=== PATIENT | male | born 1970 | race African-American/Black ===

== ENCOUNTER 2017-04-17 09:35 | Emergency (ER) | payer OTHER ==
[~2017-04-17] VITALS: Ht 180.3 cm; Wt 70.0 kg
[~2017-04-17 09:35] MED LIST: CLAR10TA7 PO; LEVE500 PO; WALKER WHEELS/F1 MIS; WHEEMIS3 XX
[2017-04-17 09:49] VITALS: BP 138/86; PULSE 69; RESP 20
[2017-04-17] MEDS ORDERED: SODIUM CHLORIDE 0.9% FLUSH 10 ML FLUSH IVF PRN (10:15)
[2017-04-17 10:23] LABS: AUTOMATED NEUTROPHIL # 4.2 TH/MM3 (1.8-7.7); BASOPHIL % 0.4 % (0.0-2.0); EOSINOPHIL % 0.2 % (0.0-4.0); HEMO FLAGS DIFF FINAL; LYMPH % 22.5 % (9.0-44.0); LYMPHOCYTE # 1.4 TH/MM3 (1.0-4.8); MEAN CELL VOLUME 85.6 FL (80.0-100.0); MEAN CORPUSCULAR HEMOGLOBIN 28.4 PG (27.0-34.0); MEAN CORPUSCULAR HGB CONC 33.2 % (32.0-36.0); MONO % 8.1 % (0.0-8.0); NEUT % 68.8 % (16.0-70.0); PLATELET COUNT 160 TH/MM3 (150-450); RED BLOOD COUNT 4.79 MIL/MM3 (4.50-5.90); RED CELL DISTRIBUTION WIDTH 14.3 % (11.6-17.2)
[2017-04-17 10:43] VITALS: O2SAT 99
--- NOTE | 2017-04-17 10:45 | RADRPT ---
EXAM DATE/TIME: 04/17/2017 10:34 [place] COMPARISON: CT BRAIN W/O CONTRAST, August 21, 2016, 14:46. INDICATIONS : Syncope, dizziness, and headache RADIATION DOSE: 28.68 CTDIvol (mGy) MEDICAL HISTORY : Chronic obstructive pulmonary disease. Seizures. SURGICAL HISTORY : None. ENCOUNTER: Initial ACUITY: 1 day PAIN SCALE: 3/10 LOCATION: cranial TECHNIQUE: Multiple contiguous axial images were obtained of the head. Using automated exposure control and adj ustment of the mA and/or kV according to patient size, radiation dose was kept as low as reasonably a chievable to obtain optimal diagnostic quality images. DICOM format image data is available electro nically for review and comparison. FINDINGS: CEREBRUM: The ventricles are normal for age. No evidence of midline shift, mass lesion, hemorrhage or acute in farction. No extra-axial fluid collections are seen. POSTERIOR FOSSA: The cerebellum and brainstem are intact. The 4th ventricle is midline. The cerebellopontine angle i s unremarkable. EXTRACRANIAL: The visualized portion of the orbits is intact. SKULL: The calvaria is intact. No evidence of skull fracture. CONCLUSION: Negative exam. Epifanio Cohen MD on April 17, 2017 at 10:41 Board Certified Radiologist. This report was verified electronically.
--- NOTE | 2017-04-17 10:46 | PD ---
HPI . Altered level of consciousness Chief Complaint: Neuro Symptoms/ Deficits Time Seen by Provider: 09:59 Travel History International Travel<30 days: No Contact w/Intl Traveler<30days: No Traveled to known affect area: No History of Present Illness HPI History is obtained from this patient's significant other. She reports altered level of consciousness which started last night. She states that he was "in and out." This has been associated with some left-sided weakness. She states that his symptoms will start with watering from his eyes, nose and mouth. He will then be unresponsive for a period of time. He does not have any movement associated with the episodes of unresponsiveness with the exception of fluttering of his eyelids. The patient's significant other states that he has had several previous similar episodes. She states that he has been admitted to the hospital a couple of occasions because of this. He is on Keppra and she reports compliance with Keppra. She is unaware of any exacerbating or relieving factors. PFSH Past Medical History Asthma: No Blood Disorders: No Anxiety: No Depression: No Heart Rhythm Problems: No Cancer: No Cardiovascular Problems: No High Cholesterol: No Chemotherapy: Yes (UNABLE TO CONFIRM WITH PT) Chest Pain: No Congestive Heart Failure: No COPD: Yes Diabetes: No Endocrine: No Gastrointestinal Disorders: No Genitourinary: No Hypertension: No Immune Disorder: No Implanted Vascular Access Dvce: No Musculoskeletal: No Neurologic: No Psychiatric: No Reproductive: No Respiratory: No Radiation Therapy: No Seizures: Yes Sleep Apnea: No Thyroid Disease: No Past Surgical History Other Surgery: No Social History Alcohol Use: Yes ([facility]) Tobacco Use: No Substance Use: No Allergies-Medications (Allergen,Severity, Reaction): Coded Allergies: No Known Allergies (Verified , 08/21/16) Reported Meds & Prescriptions Reported Meds & Active Scripts Active Keppra (Levetiracetam) 500 Mg Tab 1,000 Mg PO Q12HR 30 Days Review of Systems Except as stated in HPI: all other systems reviewed are Neg General / Constitutional: No: Fever, Chills HENT: Positive: Headaches Cardiovascular: No: Chest Pain or Discomfort Respiratory: No: Shortness of Breath Gastrointestinal: No: Nausea, Vomiting Neurologic: Positive: Weakness, Syncope, Focal Abnormalities, Headache, Change in Mentation Physical Exam Narrative GENERAL: The patient is lying on the stretcher with his eyes closed. He has rhinorrhea and tearing. He will awaken and answer questions but prefers to be lying with his eyes closed. SKIN: Warm and dry. HEAD: Atraumatic. Normocephalic. EYES: Pupils equal and round. Extraocular movements are intact. ENT: No nasal bleeding or discharge. Mucous membranes pink and moist. NECK: Trachea midline. Neck is supple. CARDIOVASCULAR: Regular rate and rhythm. Heart sounds are normal. RESPIRATORY: No accessory muscle use. Lungs sound clear with good air movement throughout. GASTROINTESTINAL: Abdomen soft, non-tender, nondistended. MUSCULOSKELETAL: No obvious deformities. No edema. NEUROLOGICAL: Sleepy but easily arousable. No obvious cranial nerve deficits. He has no sensation or movement on the left side. PSYCHIATRIC: Appropriate mood and affect; insight and judgment normal. Data Data Last Documented VS Vital Signs Date Time Temp Pulse Resp B/P (MAP) Pulse Ox O2 Delivery O2 Flow Rate FiO2 04/17/17 10:43 99 04/17/17 09:49 69 20 Orders Orders Complete Blood Count With Diff (04/17/17 10:10) Basic Metabolic Panel (Bmp) (04/17/17 10:10) Ct Brain W/O Iv Contrast(Rout) (04/17/17 ) Ecg Monitoring (04/17/17 10:10) Iv Access Insert/Monitor (04/17/17 10:10) Oximetry (04/17/17 10:10) Sodium Chloride 0.9% Flush (Ns Flush) (04/17/17 10:15) Prochlorperazine Inj (Compazine Inj) (04/17/17 11:00) Diphenhydramine Inj (Benadryl Inj) (04/17/17 11:00) Labs Laboratory Tests Test 04/17/17 10:15 White Blood Count 6.0 TH/MM3 Red Blood Count 4.79 MIL/MM3 Hemoglobin 13.6 GM/DL Hematocrit 41.0 % Mean Corpuscular Volume 85.6 FL Mean Corpuscular Hemoglobin 28.4 PG Mean Corpuscular Hemoglobin Concent 33.2 % Red Cell Distribution Width 14.3 % Platelet Count 160 TH/MM3 Mean Platelet Volume 8.3 FL Neutrophils (%) (Auto) 68.8 % Lymphocytes (%) (Auto) 22.5 % Monocytes (%) (Auto) 8.1 % Eosinophils (%) (Auto) 0.2 % Basophils (%) (Auto) 0.4 % Neutrophils # (Auto) 4.2 TH/MM3 Lymphocytes # (Auto) 1.4 TH/MM3 Monocytes # (Auto) 0.5 TH/MM3 Eosinophils # (Auto) 0.0 TH/MM3 Basophils # (Auto) 0.0 TH/MM3 CBC Comment DIFF FINAL Differential Comment Blood Urea Nitrogen 11 MG/DL Creatinine 0.93 MG/DL Random Glucose 95 MG/DL Calcium Level 9.2 MG/DL Sodium Level 139 MEQ/L Potassium Level 3.9 MEQ/L Chloride Level 106 MEQ/L Carbon Dioxide Level 24.6 MEQ/L Anion Gap 8 MEQ/L Estimat Glomerular Filtration Rate 107 ML/MIN MDM Medical Decision Making Medical Screen Exam Complete: Yes Emergency Medical Condition: Yes Medical Record Reviewed: Yes (this patient was admitted in September 2015 and then again in July 2016. He has had a negative MRI of his brain, negative EEG, negative carotid ultrasound. 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 He has been treated with Keppra.) Differential Diagnosis Differential diagnosis of seizure includes but is not limited to epilepsy, electrolyte abnormality, previous stroke, closed head injury Narrative Course This patient presents following syncope and possible seizure. He has had this a couple times in the past. The etiology of his symptoms are as yet undetermined. CBC & BMP Diagram 04/17/17 10:15 Calcium Level 9.[address] 04/17/17 0000 Signed Impressions: Service Date/Time: Monday, April 17, 2017 10:34 - CONCLUSION: Negative exam. Epifanio Cohen MD This patient cannot go home as he is paralyzed on the left side. He is currently being treated with oxygen and Compazine/Benadryl for the possibility of cluster headaches. This patient's symptoms did improve slightly with the oxygen and Compazine/ Benadryl. Physician Communication Physician Communication Dr. Agee Diagnosis Primary Impression: Syncope and collapse Additional Impressions: Left-sided weakness Headache Qualified Codes: R51 - Headache Admitting Information Admitting Physician Requests: Admit Condition: Stable Dianne St MD Apr 17, 2017 10:46
[2017-04-17 10:50] LABS: BICARBONATE 24.6 MEQ/L (21.0-32.0); POTASSIUM 3.9 MEQ/L (3.5-5.1)
[2017-04-17] MEDS ORDERED: PROCHLORPERAZINE INJ 10 MG/2 ML VIAL IV PUSH ONE (11:00)
[2017-04-17] MEDS ORDERED: diphenhydrAMINE HCL 50 MG/ML VIAL IV PUSH ONE (11:00)
[2017-04-17 12:49] VITALS: BP 110/72; PULSE 60; RESP 20
[2017-04-17] MEDS ORDERED: CYCL5TAB PO (15:35)
--- NOTE | 2017-04-17 15:43 | HHI.HP ---
HPI Service [facility]ists Primary Care Physician Aiyana Felix MD Admission Diagnosis altered mental status, L sided weakness Travel History International Travel<30 Days: No Contact w/Intl Traveler <30 Da: No Traveled to Known Affected Are: No Past Family Social History Allergies: Coded Allergies: No Known Allergies (Verified , 08/21/16) Physical Exam Vital Signs Vital Signs Date Time Temp Pulse Resp B/P (MAP) Pulse Ox O2 Delivery O2 Flow Rate FiO2 04/17/17 12:49 60 20 110/72 (85) 04/17/17 10:43 99 04/17/17 09:49 69 20 138/86 (103) Physical Exam GENERAL: This is a well-nourished, well-developed patient, in no apparent distress. SKIN: No rashes, ecchymoses or lesions. Cool and dry. HEAD: Atraumatic. Normocephalic. No temporal or scalp tenderness. EYES: Pupils equal round and reactive. Extraocular motions intact. No scleral icterus. No injection or drainage. ENT: Nose without bleeding, purulent drainage or septal hematoma. Throat without erythema, tonsillar hypertrophy or exudate. Uvula midline. Airway patent. NECK: Trachea midline. No JVD or lymphadenopathy. Supple, nontender, no meningeal signs. CARDIOVASCULAR: Regular rate and rhythm without murmurs, gallops, or rubs. RESPIRATORY: Clear to auscultation. Breath sounds equal bilaterally. No wheezes , rales, or rhonchi. GASTROINTESTINAL: Abdomen soft, non-tender, nondistended. No hepato-splenomegaly , or palpable masses. No guarding. MUSCULOSKELETAL: Extremities without clubbing, cyanosis, or edema. No joint tenderness, effusion, or edema noted. No calf tenderness. Negative Homans sign bilaterally. NEUROLOGICAL: Awake and alert. Cranial nerves II through XII intact. Motor and sensory grossly within normal limits. Five out of 5 muscle strength in all muscle groups. Normal speech. Laboratory Laboratory Tests Test 04/17/17 10:15 White Blood Count 6.0 Red Blood Count 4.79 Hemoglobin 13.6 Hematocrit 41.0 Mean Corpuscular Volume 85.6 Mean Corpuscular Hemoglobin 28.4 Mean Corpuscular Hemoglobin Concent 33.2 Red Cell Distribution Width 14.3 Platelet Count 160 Mean Platelet Volume 8.3 Neutrophils (%) (Auto) 68.8 Lymphocytes (%) (Auto) 22.5 Monocytes (%) (Auto) 8.1 Eosinophils (%) (Auto) 0.2 Basophils (%) (Auto) 0.4 Neutrophils # (Auto) 4.2 Lymphocytes # (Auto) 1.4 Monocytes # (Auto) 0.5 Eosinophils # (Auto) 0.0 Basophils # (Auto) 0.0 CBC Comment DIFF FINAL Differential Comment Blood Urea Nitrogen 11 Creatinine 0.93 Random Glucose 95 Calcium Level 9.2 Sodium Level 139 Potassium Level 3.9 Chloride Level 106 Carbon Dioxide Level 24.6 Anion Gap 8 Estimat Glomerular Filtration Rate 107 Result Diagram: 04/17/17 1015 04/17/17 1015 Caprini VTE Risk Assessment Caprini Risk Assessment Model Point Value = 1 Point Value = 2 Point Value = 3 Point Value = 5 Age 41-60 Minor surgery BMI > 25 kg/m2 Swollen legs Varicose veins or History of unexplained or recurrent spontaneous Oral contraceptives or hormone replacement Sepsis (< 1 month) Serious lung disease, including pneumonia (< 1 month) Abnormal pulmonary function Acute myocardial infarction Congestive heart failure (< 1 month) History of inflammatory bowel disease Medical patient at bed rest Age 61-74 Arthroscopic surgery Major open surgery (> 45 min) Laparoscopic surgery (> 45 min) Malignancy Confined to bed (> 72 hours) Immobilizing plaster cast Central venous access Age >= 75 History of VTE Family history of VTE Factor V Leiden Prothrombin [id number] Lupus anticoagulant Anticardiolipin antibodies Elevated serum homocysteine Heparin-induced thrombocytopenia Other congenital or acquired thrombophilia Stroke (< 1 month) Elective arthroplasty Hip, pelvis, or leg fracture Acute spinal cord injury (< 1 month) Prophylaxis Regimen Total Risk Factor Score Risk Level Prophylaxis Regimen 0-1 Low Early ambulation 2 Moderate Order ONE of the following: *Sequential Compression Device (SCD) *Heparin 5000 units SQ BID 3-4 Higher Order ONE of the following medications: *Heparin 5000 units SQ TID *Enoxaparin/Lovenox 40 mg SQ daily (WT < 150 kg, CrCl > 30 mL/min) *Enoxaparin/Lovenox 30 mg SQ daily (WT < 150 kg, CrCl > 10-29 mL/min) *Enoxaparin/Lovenox 30 mg SQ BID (WT < 150 kg, CrCl > 30 mL/min) AND/OR *Sequential Compression Device (SCD) 5 or more Highest Order ONE of the following medications: *Heparin 5000 units SQ TID (Preferred with Epidurals) *Enoxaparin/Lovenox 40 mg SQ daily (WT < 150 kg, CrCl > 30 mL/min) *Enoxaparin/Lovenox 30 mg SQ daily (WT < 150 kg, CrCl > 10-29 mL/min) *Enoxaparin/Lovenox 30 mg SQ BID (WT < 150 kg, CrCl > 30 mL/min) AND *Sequential Compression Device (SCD) Aries Agee MD Apr 17, 2017 15:43
== END 2017-04-17 15:54 | disposition home or self-care (01) ==
LOC: NEPC 09:35 → NEDA 11:46 → UNDOADMOB 11:46 → INTOOBSV 11:46
DX: R55 Syncope and collapse (principal); R53.1 Weakness; R51 Headache
CPT/HCPCS: 70450; 80048; 85025; 96374; 96375; 99285; J0780; J1200

== ENCOUNTER 2018-04-08 08:55 | Observation (INO) ==
--- NOTE | 2018-04-08 09:20 | ED ---
HPI General Chief Complaint: Chest Pain Stated Complaint: Chest pain Time Seen by Provider: 04/08/18 09:05 Source: patient Mode of arrival: EMS Limitations: no limitations History of Present Illness HPI narrative: Patient is a 47-year-old male who presents to the emergency room via EMS for evaluation of chest pain. 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 Patient reports that chest pain feels like a sharp and stabbing sensation to his left chest, it is nonradiating in nature. Patient endorses that he does feel short of breath and diaphoretic with the symptoms. Patient reports that nothing makes chest pain better or worse, reports that this is happened once but he saw a physician for this. Patient reports that his only medical history is seizures, he takes Keppra for this. Patient with no history of hypertension or hyperlipidemia or diabetes. Patient reports that he is a tobacco smoker, no family history of early coronary artery disease. Patient also endorses that he does feel lightheaded and dizzy with this chest pain. EMS reports that they found patient on the lawn of someone's house clutching his left chest - their EKG was unremarkable - no meds were given to patient. Complete Quality Measures for STEMI Alert Patients Related Data Home Medications Medication Instructions Recorded Confirmed levetiracetam [Keppra] 500 mg PO Q12H 04/08/18 04/08/18 Allergies Allergy/AdvReac Type Severity Reaction Status Date / Time No Known Allergies Allergy Unverified 04/08/18 09:04 Review of Systems ROS: all other systems reviewed are negative [facility] Medical History Medical History Seizure (Acute) Social History Social History Substance History: No History of Abuse Second Hand Smoke Exposure: No Smoking Status: Light tobacco smoker Tobacco Type: Cigarettes How Often Do You Have a Drink Containing Alcohol: 2 to 3 times a week Recent Travel in [facility] within the Last 8 Weeks: No Recent Out of Country Travel within the Last 8 Weeks: No Immunization History Tetanus Immunization: Unsure Hx Influenza Vaccine This Season: Unable to Assess Exam Narrative Exam Narrative: GENERAL: severe distress SKIN: Focused skin assessment warm/diaphoretic. HEAD: Atraumatic. Normocephalic. EYES: Pupils equal and round. No scleral icterus. No injection or drainage. ENT: No nasal bleeding or discharge. Mucous membranes pink and moist. NECK: Trachea midline. No JVD. CARDIOVASCULAR: Tachycardic. No murmur appreciated. Patient clutching his left chest RESPIRATORY: No accessory muscle use. Clear to auscultation. Breath sounds equal bilaterally. GASTROINTESTINAL: Abdomen soft, non-tender, nondistended. Hepatic and splenic margins not palpable. MUSCULOSKELETAL: No obvious deformities. No clubbing. No cyanosis. No edema. NEUROLOGICAL: Awake and alert. No obvious cranial nerve deficits. Motor grossly within normal limits. Normal speech. PSYCHIATRIC: Anxious mood and affect; insight and judgment normal. Course Initial Documented Vital Signs Pulse Oximetry 98 04/08/18 09:00 Last Documented Vital Signs Pulse Rate 64 04/08/18 10:00 Respiratory Rate 16 04/08/18 09:49 Blood Pressure 97/57 L 04/08/18 10:00 Pulse Oximetry 98 04/08/18 09:49 Medical Decision Making MDM Narrative Medical decision making narrative: During the course of the patients emergency department visit, the patients history, examination, and differential diagnosis were reviewed with the patient. The patient was placed on a deck cadet with oximetry and frequent blood pressure monitoring. The patient had an IV access obtained and blood work sent for analysis. The patient was initially provided aspirin 162mg as well as SL nitro for chest pain Patient lab work was reviewed, for set of troponin was negative. Patient's d- dimer 0.92. Patient had relief of chest pain after 1 sublingual nitroglycerin. Given his positive d-dimer, a CTA was ordered to rule out PE. Patient is agreeable for this CAT scan. CTA neg for pe- patient resting comfortably at this time - patient will be obs in the chest pain unit Differential Diagnosis Differential Diagnosis: ACS, arrhythmia, electrolyte abnormality, anxiety reaction, pneumothorax, PE Medical Records Medical records reviewed: Yes I reviewed the patient's medical records. Lab Data Lab results reviewed: Yes I reviewed the patient's lab results. Result diagrams: 04/08/18 09:10 04/08/18 09:10 Lab Results 04/08/18 04/08/18 04/08/18 Range/Units 09:10 09:10 09:10 WBC 5.1 (4.0-11.0) th/mm3 RBC 4.57 (4.50-5.90) mil/mm3 Hgb 12.9 L (13.0-17.0) gm/dL Hct 38.3 L (39.0-51.0) % MCV 83.8 (80.0-100.0) fL MCH 28.3 (27.0-34.0) pg MCHC 33.8 (32.0-36.0) % RDW 14.1 (11.6-17.2) % Plt Count 177 (150-450) th/mm3 MPV 8.1 (7.0-11.0) fL Neut % (Auto) 69.6 (16.0-70.0) % Lymph % (Auto) 21.5 (9.0-44.0) % Parmer % (Auto) 8.1 H (0.0-8.0) % Eos % (Auto) 0.2 (0.0-4.0) % Baso % (Auto) 0.6 (0.0-2.0) % Neut # (Auto) 3.5 (1.8-7.7) th/mm3 Lymph # (Auto) 1.1 (1.0-4.8) th/mm3 Parmer # (Auto) 0.4 (0.0-0.9) th/mm3 Eos # (Auto) 0.0 (0.0-0.4) th/mm3 Baso # (Auto) 0.0 (0.0-0.2) th/mm3 WBC Differential . Differential Comment Auto diff final PT 11.0 (9.8-11.6) sec INR 1.1 Ratio APTT 22.9 L (24.3-30.1) sec D-Dimer Quant (PE/DVT) 0.92 H (0.00-0.50) mg/L FEU Sodium 138 (136-145) meq/L Potassium 3.9 (3.5-5.1) meq/L Chloride 106 (98-107) meq/L Carbon Dioxide 21.6 (21.0-32.0) meq/L Anion Gap 10 (5-15) meq/L BUN 15 (7-18) mg/dL Creatinine 1.02 (0.60-1.30) mg/dL Estimated GFR Greater than 89 (>89) mL/min Random Glucose 90 (74-106) mg/dL Calcium 8.8 (8.5-10.1) mg/dL Magnesium 1.9 (1.5-2.5) mg/dL Total Bilirubin 0.9 (0.2-1.0) mg/dL AST 31 (15-37) U/L ALT 41 (12-78) U/L Alkaline Phosphatase 63 (45-117) U/L Total Creatine Kinase 406 H (39-308) U/L CK-MB (CK-2) 1.2 (0.5-3.6) ng/mL CK-MB (CK-2) % 0.3 (0.0-4.0) % Troponin I Less than 0.02 L (0.02-0.05) ng/mL B-Natriuretic Peptide (0-100) pg/mL Total Protein 7.2 (6.4-8.2) g/dL Albumin 4.0 (3.4-5.0) g/dL Lipase 255 (73-393) U/L 04/08/18 Range/Units 09:10 WBC (4.0-11.0) th/mm3 RBC (4.50-5.90) mil/mm3 Hgb (13.0-17.0) gm/dL Hct (39.0-51.0) % MCV (80.0-100.0) fL MCH (27.0-34.0) pg MCHC (32.0-36.0) % RDW (11.6-17.2) % Plt Count (150-450) th/mm3 MPV (7.0-11.0) fL Neut % (Auto) (16.0-70.0) % Lymph % (Auto) (9.0-44.0) % Parmer % (Auto) (0.0-8.0) % Eos % (Auto) (0.0-4.0) % Baso % (Auto) (0.0-2.0) % Neut # (Auto) (1.8-7.7) th/mm3 Lymph # (Auto) (1.0-4.8) th/mm3 Parmer # (Auto) (0.0-0.9) th/mm3 Eos # (Auto) (0.0-0.4) th/mm3 Baso # (Auto) (0.0-0.2) th/mm3 WBC Differential Differential Comment PT (9.8-11.6) sec INR Ratio APTT (24.3-30.1) sec D-Dimer Quant (PE/DVT) (0.00-0.50) mg/L FEU Sodium (136-145) meq/L Potassium (3.5-5.1) meq/L Chloride (98-107) meq/L Carbon Dioxide (21.0-32.0) meq/L Anion Gap (5-15) meq/L BUN (7-18) mg/dL Creatinine (0.60-1.30) mg/dL Estimated GFR (>89) mL/min Random Glucose (74-106) mg/dL Calcium (8.5-10.1) mg/dL Magnesium (1.5-2.5) mg/dL Total Bilirubin (0.2-1.0) mg/dL AST (15-37) U/L ALT (12-78) U/L Alkaline Phosphatase (45-117) U/L Total Creatine Kinase (39-308) U/L CK-MB (CK-2) (0.5-3.6) ng/mL CK-MB (CK-2) % (0.0-4.0) % Troponin I (0.02-0.05) ng/mL B-Natriuretic Peptide 13 (0-100) pg/mL Total Protein (6.4-8.2) g/dL Albumin (3.4-5.0) g/dL Lipase (73-393) U/L Imaging Data Attestation: I personally reviewed and interpreted this imaging study as follows : Radiologist's impression: Chest X-Ray 04/08/18 09:05 CONCLUSION: 1. No acute cardiopulmonary disease. Chest CTA 04/08/18 09:39 CONCLUSION: 1. Biapical emphysematous changes. 2. No acute infiltrate or pulmonary embolus. ECG Data EKG Prior to Arrival: Yes Attestation: I personally reviewed and interpreted this ECG as follows: Prior ECG tracings: not available for review Interpretation: EKG at 0904: NSR at 90bpm, qt/qtc: 341/389, no acute st or t wave changes Discharge Plan Discharge Disposition Patient Disposition: 30 Still Patient Discharge Condition Condition: Stable Discharge Details Diagnosis: Chest pain Physicians Team ED Provider: Rachelle Diaz Primary Care Provider: Aiyana Calvillo Rxs /Orders / Referrals /Forms Prescriptions: No Action levetiracetam [Keppra] 250 mg Tablet 500 mg PO Q12H RF: 0 Discharge Instructions Patient Printed Instructions: Chest Pain (ED) Status ED Status: With Doctor
[2018-04-08 09:25] LABS: Baso % (Auto) 0.6 % (0.0-2.0); Eos % (Auto) 0.2 % (0.0-4.0); Hematocrit 38.3 % (39.0-51.0); Hemoglobin 12.9 gm/dL (13.0-17.0); Lymph # (Auto) 1.1 th/mm3 (1.0-4.8); Lymph % (Auto) 21.5 % (9.0-44.0); Mean Corpuscular HGB Conc 33.8 % (32.0-36.0); Mean Corpuscular Hemoglobin 28.3 pg (27.0-34.0); Mean Corpuscular Volume 83.8 fL (80.0-100.0); Mean Platelet Volume 8.1 fL (7.0-11.0); Mono # (Auto) 0.4 th/mm3 (0.0-0.9); Mono % (Auto) 8.1 % (0.0-8.0); Neut # (Auto) 3.5 th/mm3 (1.8-7.7); Neut % (Auto) 69.6 % (16.0-70.0); Platelet Count 177 th/mm3 (150-450); Red Blood Count 4.57 mil/mm3 (4.50-5.90); Red Cell Distribution Width 14.1 % (11.6-17.2); White Blood Count 5.1 th/mm3 (4.0-11.0)
[2018-04-08 09:34] LABS: Activated Partial Thrombo Time 22.9 sec (24.3-30.1); INR 1.1 Ratio
[2018-04-08 09:35] LABS: D-Dimer 0.92 mg/L FEU (0.00-0.50)
--- NOTE | 2018-04-08 09:41 | XR ---
EXAM DATE: 04/08/2018 9:38 AM EDT AGE/SEX: 47 years / Male INDICATIONS: Chest pain and shortness of breath. CLINICAL DATA: This is the patient's initial encounter. Patient reports that signs and symptoms have been present for 1 month and indicates a pain score of 6/10. MEDICAL/SURGICAL HISTORY: Chronic obstructive pulmonary disease. Seizures. None. COMPARISON: [facility] [place], CHEST SINGLE AP, 10/06/2015. . FINDINGS: No new focal pleural or parenchymal opacities. The cardiomediastinal contours are unremarkable. Oss eous structures are intact. CONCLUSION: 1. No acute cardiopulmonary disease. Electronically signed by: Henri Mckeon MD 04/08/2018 9:40 AM EDT
[2018-04-08 09:45] LABS: Alanine Aminotransferase 41 U/L (12-78); Anion Gap 10 meq/L (5-15); Aspartate Aminotransferase 31 U/L (15-37); Blood Urea Nitrogen 15 mg/dL (7-18); Calcium 8.8 mg/dL (8.5-10.1); Carbon Dioxide 21.6 meq/L (21.0-32.0); Chloride 106 meq/L (98-107); Glomerular Filtration Rate Greater Than 89 mL/min (>89); Glucose,Random 90 mg/dL (74-106); Lipase 255 U/L (73-393); Magnesium 1.9 mg/dL (1.5-2.5); Potassium 3.9 meq/L (3.5-5.1); Sodium 138 meq/L (136-145)
[2018-04-08 09:49] LABS: Alkaline Phosphatase 63 U/L (45-117); Creatine Kinase 406 U/L (39-308); Total Protein 7.2 g/dL (6.4-8.2)
[2018-04-08 10:01] LABS: CKMB Percent 0.3 % (0.0-4.0); Creatine Kinase MB 1.2 ng/mL (0.5-3.6)
--- NOTE | 2018-04-08 10:45 | CT ---
EXAM DATE: 04/08/2018 10:35 AM EDT AGE/SEX: 47 years / Male INDICATIONS: Chest pain. Shortness of breath. CLINICAL DATA: This is the patient's initial encounter. Patient reports that signs and symptoms have been present for 1 day and indicates a pain score of 6/10. MEDICAL/SURGICAL HISTORY: . Seizures. None. RADIATION DOSE: 8.46 CTDI (mGy) COMPARISON: No prior exams available for comparison. TECHNIQUE: Volumetric scanning was performed using a multi-row detector CT scanner during bolus infu eugenia of 73 ml Omnipaque 350 (iohexol) nonionic water-soluble contrast as a single exam dose. The nallely a was post processed with a variety of visualization algorithms including full volume maximum intensi ty projection and sliding thin slab reformation. Using automated exposure control and adjustment of the mA and/or kV according to patient size, radiation dose was kept as low as reasonably achievable t o obtain optimal diagnostic quality images. DICOM format image data is available electronically for review and comparison. FINDINGS: Pulmonary Arteries: No filling defects are seen in the pulmonary arteries out to the subsegmental ve ssels. The left and right pulmonary arteries are normal in diameter. Lung: Biapical emphysematous changes. Lungs are otherwise clear. Effusion: None. Mediastinum: No evidence of mediastinal or hilar adenopathy. Other: The axilla is unremarkable. CONCLUSION: 1. Biapical emphysematous changes. 2. No acute infiltrate or pulmonary embolus. Electronically signed by: Epifanio Cohen MD 04/08/2018 10:44 AM EDT
[2018-04-08] MEDS ORDERED: Bisacodyl 10 MG Supp RECTAL PRN (11:56)
[2018-04-08] MEDS ORDERED: Acetaminophen 325 MG Tablet PO PRN (11:56)
[2018-04-08] MEDS ORDERED: Morphine Inj 4 MG/ML Vial IV.PUSH PRN ×2 (12:02)
[2018-04-08] MEDS ORDERED: Naloxone Inj 0.4 MG/ML Vial IV.PUSH PRN (12:02)
[2018-04-08] MEDS ORDERED: oxyCODONE/Acetaminophen 10/325 Tablet PO PRN (12:02)
[2018-04-08] MEDS: Sod Chloride 0.9% Inj 1,000 ML IV.CONT SCH ×2 (12:13→23:53)
--- NOTE | 2018-04-08 12:42 | ECG ---
Date Performed: 04/08/2018 Time Performed: 09:04:24 PTAGE: 47 years EKG: Baseline artifact present Sinus rhythm POSSIBLE LEFT ATRIAL ENLARGEMENT BORDERLINE ECG Compared to prior electrocardiogram, rate has increa sed NO PREVIOUS TRACING DOCTOR: Silvano Martins Interpretating Date/Time 04/08/2018 12:41:28
[2018-04-08 12:48] LABS: Creatine Kinase 356 U/L (39-308)
[2018-04-08 13:00] LABS: CKMB Percent 0.3 % (0.0-4.0); Creatine Kinase MB 1.1 ng/mL (0.5-3.6)
[2018-04-08] MEDS: levETIRAcetam 250 MG Tablet PO SCH (13:35)
[2018-04-08] MEDS: Enoxaparin Inj 40 MG/0.4 ML Syringe SQ SCH (13:38)
[2018-04-08] MEDS ORDERED: Ketorolac Inj 30 MG/ML (IVP) Vial IV.PUSH ONE (14:38)
--- NOTE | 2018-04-08 15:14 | MB ---
cc: Wally Martinez MD DATE: 04/08/2018 REASON FOR CONSULTATION: Chest pain. HISTORY OF PRESENT ILLNESS: The patient is a 47-year-old male with a history of seizure disorder, who presented to the emergency department with a 4-week history of waxing and waning left-sided chest discomfort described as "sharp stabbing." Associated symptoms have included shortness of breath and possibly slight nausea. The patient has had relief of the discomfort here in the emergency department with morphine. He denies pleurisy, pedal edema, palpitations, paroxysmal nocturnal dyspnea. Today, the patient was at work when he experienced the chest discomfort to a severe degree, and he began to feel severely lightheaded. So he finally came to the emergency department for further evaluation and treatment. The patient denies any recent flu-like illnesses. PAST MEDICAL HISTORY: Seizure disorder. MEDICATIONS AT HOME: None. ALLERGIES: NO KNOWN DRUG ALLERGIES. FAMILY HISTORY: There is no significant family history of early myocardial infarction. SOCIAL HISTORY: The patient smokes cigarettes infrequently. He denies alcohol abuse. REVIEW OF SYSTEMS: As in the history of present illness, otherwise negative or noncontributory. He also denies bright red blood per rectum, melena, or wheezing. At times, he does experience dyspepsia and mild headaches. PHYSICAL EXAMINATION: VITAL SIGNS: Blood pressure 117/78 with a pulse of 70, respirations 16. GENERAL: He is a well-developed, thin, male in no acute distress. NECK: Jugular venous pressure is normal. Carotid pulses are 2+ bilaterally and without bruits. CHEST: Reveals clear lung campbell. CARDIAC: He has a regular rhythm and rate without S3, S4, murmur, or rub. ABDOMEN: He has a soft, nontender abdomen. Bowel sounds are present. There is no definite hepatosplenomegaly. EXTREMITIES: Reveals no clubbing, cyanosis, or edema. DIAGNOSTIC DATA: EKG shows normal sinus rhythm, nonspecific ST abnormality. Chest x-ray shows no acute disease. LABORATORY DATA: Includes WBC 5.1, hemoglobin 12.9, platelets 177,000. Negative cardiac enzymes. Potassium 3.9, BUN 15, creatinine 1.02. IMPRESSION: Probable costochondritis in this 47-year-old male with a history of seizure disorder. Overall, I doubt his chest pain symptoms, which have been basically ongoing for the last 4 weeks, are due to myocardial ischemia or infarct. Despite prolonged episodes of chest pain lasting up to a few hours, cardiac enzymes are negative for myocardial infarction. EKG shows nonspecific ST changes. Lastly, he has exquisite left parasternal tenderness on exam, which reproduces his symptoms. Reportedly, there is no evidence for pulmonary embolism on CT angiogram of the chest. RECOMMENDATIONS: 1. Treat with intravenous Toradol and eventually an oral nonsteroidal anti-inflammatory drug. 2. Continue to treat with p.r.n. morphine. 3. Check a 2-D echo to assess his left ventricular function. 4. Unless his echocardiogram demonstrates left ventricular dysfunction or wall motion abnormalities, would not recommend stress testing at this point, given the very low pretest probability that his symptoms are due to underlying severe coronary disease. 5. We will follow up as needed. MD SHARLENE Goss/enid , 02:37 PM , 02:45 PM [email or web address]
--- NOTE | 2018-04-08 15:43 | ECG ---
Date Performed: 04/08/2018 Time Performed: 11:50:45 PTAGE: 47 years EKG: SINUS BRADYCARDIA POSSIBLE LEFT ATRIAL ENLARGEMENT POSSIBLE LEFT VENTRICULAR HYPERTROPHY ST ABNORMALITY, PROBABLE EARLY REPOLARIZATION ABNORMAL ECG NO PREVIOUS TRACING DOCTOR: Wally Martinez Interpretating Date/Time 04/08/2018 15:41:49
--- NOTE | 2018-04-08 16:01 | US ---
EXAM DATE: 04/08/2018 3:55 PM EDT AGE/SEX: 47 years / Male INDICATIONS: Left leg pain. CLINICAL DATA: This is the patient's initial encounter. Patient reports that signs and symptoms have been present for 4 - 6 days and indicates a pain score of 8/10. MEDICAL/SURGICAL HISTORY: Seizures. None. COMPARISON: No prior exams available for comparison. TECHNIQUE: Venous ultrasound of both lower extremities was performed from the inguinal ligament to t he proximal calf. Real-time, color Doppler and spectral tracing, compression and augmentation techni ques were used. FINDINGS: Normal compression of the deep venous system from the inguinal region to the proximal calf . No echogenic clot is seen. Normal response of the venous system to augmentation and respiration. CONCLUSION: 1. The study is negative for left lower extremity deep venous thrombosis. Electronically signed by: Henri Mckeon MD 04/08/2018 4:00 PM EDT
[2018-04-08] MEDS ORDERED: Dextrose 50% in Water 50 ML Vial IV.PUSH PRN (17:13)
--- NOTE | 2018-04-08 17:37 | P.HP ---
History of Present Illness Service: Hospitalist Primary Care Physician: Aiyana Calvillo Chief Complaint: Chest pain History of Present Illness: Patient is a 47-year-old -[place]ian male who presented to the emergency room via EMS for evaluation of chest pain. He has a past medical history significant for seizures; his compliance with his Keppra is questionable. Patient tells me that his initial chest pain was stabbing in nature but it has now reduced to more of a spasm. He tells me that this is been going on for 4-5 weeks where he also experiences chest tightness, lightheadedness and shortness of breath during these episodes. The pain occurs both with activity and at rest. He also endorses occasional wheezing; denies any history of asthma. His other complaint is left calf and leg pain. Tells me that he gets frequent swelling in the left leg that he uses compression hose for. Review of medical records shows that patient was seen 03/2017 for left-sided paralysis. MRI EEG and carotids were generally negative. 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 Review of Systems All other systems reviewed negative except as stated in HPI PMFSH - History History Provided By: Patient, Significant Other, Medical Record - Medical History Medical History: Medical History (Last Reviewed 04/08/18 @ 17:27 by KAN Varela) No significant past surgical history Seizure - Family History Family History: Family History (Last Reviewed 04/08/18 @ 17:27 by KAN Varela) Grandparent HTN (hypertension) - Tobacco History Second Hand Smoke Exposure: No Tobacco Use In Past 30 Days: Yes Smoking Status: Light tobacco smoker Tobacco Type: Cigarettes - Alcohol History How Often Do You Have a Drink Containing Alcohol: 2 to 3 times a week - Substance Use History Substance History: No History of Abuse - Travel History Recent Travel in the [place] Within the Last 8 Weeks: No Recent Travel Out of the Country Within the Last 8 Weeks: No - Immunization History Tetanus Immunization: Unsure Hx Influenza Vaccine This Season: Unable to Assess Medications and Allergies Active Medications: Active Medications Acetaminophen (Tylenol) 650 mg PO Q4H PRN PRN Reason: Temp > 100.4 Al Hydroxide/Mg Hydroxide (Milk Of Magnbautista Liq) 30 ml PO Q12H PRN PRN Reason: Mild Constipation Aspirin (Aspirin) 325 mg PO DAILY ANUPAM Bisacodyl (Dulcolax Supp) 10 mg RECTAL DAILY PRN PRN Reason: SEVERE CONSITIPATION Dextrose (D50w Vial) 50 ml IV.PUSH UNSCH PRN PRN Reason: PER HYPOGLYCEMIA PROTOCOL Enoxaparin Sodium (Lovenox Inj) 40 mg SQ Q24H [facility] Last Admin: 04/08/18 13:38 Dose: Not Given Glucagon (Glucagon Inj) 1 mg OTHER PRN PRN PRN Reason: for Hypoglycemia Protocol Sodium Chloride (Ns Inj) 1,000 mls @ 100 mls/hr IV.CONT .Q10H [facility] Last Infusion: 04/08/18 16:37 Dose: 100 mls/hr Insulin Aspart (Novolog Insulin Correctional Sugar Inj) 0 unit SQ ACHS AND 3AM ANUPAM; Protocol Ketorolac Tromethamine (Toradol Inj) 15 mg IV.PUSH Q6H [facility] Stop: 04/12/18 21:59 Lactulose (Lactulose Liq) 30 ml PO DAILY PRN PRN Reason: SEVERE CONSITIPATION Levetiracetam (Keppra) 500 mg PO Q12H [facility] Last Admin: 04/08/18 13:35 Dose: Not Given Morphine Sulfate (Morphine Inj) 4 mg IV.PUSH Q3H PRN PRN Reason: PAIN 6-10;IF UNABLE TO TAKE PO Morphine Sulfate (Morphine Inj) 2 mg IV.PUSH Q3H PRN PRN Reason: PAIN 3-5; IF UABLE TO TAKE PO Naloxone HCl (Narcan Inj) 0.4 mg IV.PUSH UNSCH PRN PRN Reason: SEE LABEL COMMENTS Nitroglycerin (Nitrostat Sl) 0.4 mg SL Q5M PRN PRN Reason: CHEST PAIN Ondansetron HCl (Zofran Inj) 4 mg IV.PUSH Q6H PRN PRN Reason: NAUSEA OR VOMITING Oxycodone/Acetaminophen (Percocet 10/325 Mg) 1 tab PO Q6H PRN PRN Reason: PAIN SCALE 6 TO 10 Oxycodone/Acetaminophen (Percocet 5/325 Mg) 1 tab PO Q6H PRN PRN Reason: PAIN SCALE 3 TO 5 Senna/Docusate Sodium (Tracie-Colace) 1 tab PO BID ANUPAM Sennosides (Senokot) 17.2 mg PO Q12H PRN PRN Reason: Moderate Constipation Sodium Chloride (Ns Flush) 2 ml IV.FLUSH UNSCH PRN PRN Reason: FLUSH AFTER USING IV ACCESS Temazepam (Restoril) 15 mg PO HS PRN PRN Reason: INSOMNIA Allergies Allergy/AdvReac Type Severity Reaction Status Date / Time No Known Allergies Allergy Unverified 04/08/18 09:04 Home Medications Medication Instructions Recorded Confirmed Type levetiracetam [Keppra] 500 mg PO Q12H 04/08/18 04/08/18 History Exam Vital signs: Vital Signs 04/08/18 09:00 04/08/18 09:05 04/08/18 09:16 Temperature Pulse Rate 88 Respiratory Rate 22 Blood Pressure 121/77 Pulse Oximetry 98 100 100 04/08/18 09:49 04/08/18 10:00 04/08/18 12:28 Temperature Pulse Rate 69 64 70 Respiratory Rate 16 16 Blood Pressure 106/61 97/57 L 117/78 Pulse Oximetry 98 98 04/08/18 16:00 04/08/18 16:03 Temperature 97.9 F Pulse Rate 64 73 Respiratory Rate 18 14 Blood Pressure 119/86 124/84 Pulse Oximetry 99 98 Intake & Output 04/07/18 04/08/18 04/08/18 18:59 06:59 18:59 Intake Total 0 / 0 Balance 0 / 0 Weight 76.204 kg Intake: IV 0 / 0 NS Inj 1,000 ML @ 100 mls/hr IV 0 / 0 .CONT .Q10H [facility] Rx#:[id number] Narrative: GENERAL: Well-nourished, well-developed adult male in no obvious distress. SKIN: Warm and dry. HEAD: Atraumatic. Normocephalic. CARDIOVASCULAR: Regular rate and rhythm. Exquisite tenderness along left sternal border. RESPIRATORY: No accessory muscle use. Clear to auscultation. Breath sounds equal bilaterally. GASTROINTESTINAL: Abdomen soft, non-tender, distended. Positive bowel sounds. MUSCULOSKELETAL: Extremities without clubbing, cyanosis, or edema. No obvious deformities. Tenderness in left calf. NEUROLOGICAL: Awake and alert. No obvious cranial nerve deficits. Motor grossly within normal limits. Normal speech. PSYCHIATRIC: Appropriate mood and affect; insight and judgment good. Results - Labs CBC & Chem 7: 04/08/18 09:10 04/08/18 09:10 Labs: Laboratory Results - last 24 hr 04/08/18 04/08/18 04/08/18 09:10 09:10 09:10 WBC 5.1 RBC 4.57 Hgb 12.9 L Hct 38.3 L MCV 83.8 MCH 28.3 MCHC 33.8 RDW 14.1 Plt Count 177 MPV 8.1 Neut % (Auto) 69.6 Lymph % (Auto) 21.5 [place] % (Auto) 8.1 H Eos % (Auto) 0.2 Baso % (Auto) 0.6 Neut # (Auto) 3.5 Lymph # (Auto) 1.1 [place] # (Auto) 0.4 Eos # (Auto) 0.0 Baso # (Auto) 0.0 WBC Differential . Differential Comment Auto diff final PT 11.0 INR 1.1 APTT 22.9 L D-Dimer Quant (PE/DVT) 0.92 H Sodium 138 Potassium 3.9 Chloride 106 Carbon Dioxide 21.6 Anion Gap 10 BUN 15 Creatinine 1.02 Estimated GFR Greater than 89 Random Glucose 90 Calcium 8.8 Magnesium 1.9 Total Bilirubin 0.9 AST 31 ALT 41 Alkaline Phosphatase 63 Total Creatine Kinase 406 H CK-MB (CK-2) 1.2 CK-MB (CK-2) % 0.3 Troponin I Less than 0.02 L B-Natriuretic Peptide Total Protein 7.2 Albumin 4.0 Lipase 255 TSH Free T4 04/08/18 04/08/18 04/08/18 09:10 12:11 12:11 WBC RBC Hgb Hct MCV MCH MCHC RDW Plt Count MPV Neut % (Auto) Lymph % (Auto) [place] % (Auto) Eos % (Auto) Baso % (Auto) Neut # (Auto) Lymph # (Auto) [place] # (Auto) Eos # (Auto) Baso # (Auto) WBC Differential Differential Comment PT INR APTT D-Dimer Quant (PE/DVT) Sodium Potassium Chloride Carbon Dioxide Anion Gap BUN Creatinine Estimated GFR Random Glucose Calcium Magnesium Total Bilirubin AST ALT Alkaline Phosphatase Total Creatine Kinase 356 H CK-MB (CK-2) 1.1 CK-MB (CK-2) % 0.3 Troponin I Less than 0.02 L B-Natriuretic Peptide 13 Total Protein Albumin Lipase TSH 0.880 Free T4 04/08/18 13:52 WBC RBC Hgb Hct MCV MCH MCHC RDW Plt Count MPV Neut % (Auto) Lymph % (Auto) [place] % (Auto) Eos % (Auto) Baso % (Auto) Neut # (Auto) Lymph # (Auto) [place] # (Auto) Eos # (Auto) Baso # (Auto) WBC Differential Differential Comment PT INR APTT D-Dimer Quant (PE/DVT) Sodium Potassium Chloride Carbon Dioxide Anion Gap BUN Creatinine Estimated GFR Random Glucose Calcium Magnesium Total Bilirubin AST ALT Alkaline Phosphatase Total Creatine Kinase CK-MB (CK-2) CK-MB (CK-2) % Troponin I B-Natriuretic Peptide Total Protein Albumin Lipase TSH Free T4 1.01 - Imaging Impressions Venous Doppler Study 04/08/18 00:00 CONCLUSION: 1. The study is negative for left lower extremity deep venous thrombosis. Chest X-Ray 04/08/18 09:05 CONCLUSION: 1. No acute cardiopulmonary disease. Chest CTA 04/08/18 09:39 CONCLUSION: 1. Biapical emphysematous changes. 2. No acute infiltrate or pulmonary embolus. Caprini VTE Risk Assessment Caprini VTE Risk Assessment: No/Low Risk (score <= 1) Caprini Risk Assessment Model: Point Value = 1 Point Value = 2 Point Value = 3 Point Value = 5 Age 41-60 Minor surgery BMI > 25 kg/m2 Swollen legs Varicose veins or History of unexplained or recurrent spontaneous Oral contraceptives or hormone replacement Sepsis (< 1 month) Serious lung disease, including pneumonia (< 1 month) Abnormal pulmonary function Acute myocardial infarction Congestive heart failure (< 1 month) History of inflammatory bowel disease Medical patient at bed rest Age 61-74 Arthroscopic surgery Major open surgery (> 45 min) Laparoscopic surgery (> 45 min) Malignancy Confined to bed (> 72 hours) Immobilizing plaster cast Central venous access Age >= 75 History of VTE Family history of VTE Factor V Leiden Prothrombin [id number] Lupus anticoagulant Anticardiolipin antibodies Elevated serum homocysteine Heparin-induced thrombocytopenia Other congenital or acquired thrombophilia Stroke (< 1 month) Elective arthroplasty Hip, pelvis, or leg fracture Acute spinal cord injury (< 1 month) Prophylaxis Regimen: Total Risk Factor Score Risk Level Prophylaxis Regimen 0-1 Low Early ambulation 2 Moderate Order ONE of the following: *Sequential Compression Device (SCD) *Heparin 5000 units SQ BID 3-4 Higher Order ONE of the following medications: *Heparin 5000 units SQ TID *Enoxaparin/Lovenox 40 mg SQ daily (WT < 150 kg, CrCl > 30 mL/min) *Enoxaparin/Lovenox 30 mg SQ daily (WT < 150 kg, CrCl > 10-29 mL/min) *Enoxaparin/Lovenox 30 mg SQ BID (WT < 150 kg, CrCl > 30 mL/min) AND/OR *Sequential Compression Device (SCD) 5 or more Highest Order ONE of the following medications: *Heparin 5000 units SQ TID (Preferred with Epidurals) *Enoxaparin/Lovenox 40 mg SQ daily (WT < 150 kg, CrCl > 30 mL/min) *Enoxaparin/Lovenox 30 mg SQ daily (WT < 150 kg, CrCl > 10-29 mL/min) *Enoxaparin/Lovenox 30 mg SQ BID (WT < 150 kg, CrCl > 30 mL/min) AND *Sequential Compression Device (SCD) Assessment and Plan - Plan Patient is a 47-year-old -[place] male presenting for chest pain and shortness of breath. History significant for seizures and prior left-sided paralysis/Tacho's paralysis. Chest pain -Likely costochondritis -Cardiology consulted. ECG normal. Pending echo. Troponins negative. SOB -CTA chest negative for PE. -Sats ok on room air Calf pain/lower left extremity swelling -Doppler negative for DVT -We will do head CT due to left-sided pain and history of seizure/paralysis DVT prophylaxis: Ambulatory Discussed with: Patient, nurse and Dr. weber
--- NOTE | 2018-04-08 19:36 | CT ---
EXAM DATE: 04/08/2018 7:27 PM EDT AGE/SEX: 47 years / Male INDICATIONS: Seizure, left-sided arm and leg pain. CLINICAL DATA: This is the patient's initial encounter. Patient reports that signs and symptoms have been present for 1 day and indicates a pain score of 3/10. MEDICAL/SURGICAL HISTORY: Seizures. None. RADIATION DOSE: 34.81 CTDI (mGy) COMPARISON: [facility] – [place], [place] BRAIN W/O CONTRAST, 04/17/2017. . TECHNIQUE: CT of the head without contrast. Using automated exposure control and adjustment of the mA and/or kV according to patient size, radiation dose was kept as low as reasonably achievable to ob tain optimal diagnostic quality images. DICOM format image data is available electronically for revi ew and comparison. FINDINGS: Cerebrum: The ventricles are normal for age. No evidence of midline shift, mass lesion, hemorrhage or acute infarction. No extraaxial fluid collections are seen. Posterior Fossa: The cerebellum and brainstem are intact. The 4th ventricle is midline. The cerebe llopontine angle is unremarkable. Extracranial: The visualized portion of the orbits is intact. Skull: The calvaria is intact. No evidence of skull fracture. CONCLUSION: 1. Negative noncontrast CT. . Electronically signed by: Gurjit Whitfield MD 04/08/2018 7:35 PM EDT
[2018-04-08 20:11] LABS: Creatine Kinase 317 U/L (39-308)
[2018-04-08 20:23] LABS: CKMB Percent 0.3 % (0.0-4.0); Creatine Kinase MB 0.9 ng/mL (0.5-3.6)
--- NOTE | 2018-04-08 20:57 | ECG ---
Date Performed: 04/08/2018 Time Performed: 18:20:50 PTAGE: 47 years EKG: SINUS BRADYCARDIA POSSIBLE LEFT ATRIAL ENLARGEMENT NONSPECIFIC T-WAVE ABNORMALITY ST ABNORM ALITY, CONSIDER EARLY REPOLARIZATION ABNORMAL ECG PREVIOUS TRACING : 04/08/2018 11.50 No significant change from previous tracing noted. DOCTOR: Wally Martinez Interpretating Date/Time 04/08/2018 20:56:17
[2018-04-08] MEDS ORDERED: Temazepam 15 MG Capsule PO PRN (21:00)
[2018-04-08] MEDS: Insulin NovoLOG Aspart Correctional Sugar Inj SQ SCH (22:45)
[2018-04-08] MEDS: Senna/Docusate Sodium 8.6/50 MG Tablet PO SCH (22:46)
[2018-04-08] MEDS: Ketorolac Inj 30 MG/ML (IVP) Vial IV.PUSH SCH (23:52)
[2018-04-09 01:58] LABS: Baso % (Auto) 0.5 % (0.0-2.0); Eos % (Auto) 1.1 % (0.0-4.0); Hematocrit 35.3 % (39.0-51.0); Hemoglobin 11.8 gm/dL (13.0-17.0); Lymph # (Auto) 1.6 th/mm3 (1.0-4.8); Lymph % (Auto) 38.9 % (9.0-44.0); Mean Corpuscular HGB Conc 33.5 % (32.0-36.0); Mean Corpuscular Hemoglobin 28.7 pg (27.0-34.0); Mean Corpuscular Volume 85.7 fL (80.0-100.0); Mono # (Auto) 0.4 th/mm3 (0.0-0.9); Mono % (Auto) 9.7 % (0.0-8.0); Neut % (Auto) 49.8 % (16.0-70.0); Platelet Count 155 th/mm3 (150-450); Red Blood Count 4.12 mil/mm3 (4.50-5.90); Red Cell Distribution Width 14.3 % (11.6-17.2)
[2018-04-09 02:10] LABS: Alanine Aminotransferase 39 U/L (12-78); Albumin 3.4 g/dL (3.4-5.0); Alkaline Phosphatase 51 U/L (45-117); Anion Gap 4 meq/L (5-15); Aspartate Aminotransferase 31 U/L (15-37); Blood Urea Nitrogen 18 mg/dL (7-18); Calcium 8.5 mg/dL (8.5-10.1); Carbon Dioxide 30.5 meq/L (21.0-32.0); Chloride 109 meq/L (98-107); Chol/HDL Ratio 2.04 Ratio; Cholesterol 137 mg/dL (120-200); Creatine Kinase 306 U/L (39-308); Glomerular Filtration Rate Greater Than 89 mL/min (>89); Glucose,Random 91 mg/dL (74-106); HDL Cholesterol 66.9 mg/dL (40.0-60.0); LDL Cholesterol,Calculated 63 mg/dL (0-99); Magnesium 2.1 mg/dL (1.5-2.5); Potassium 4.1 meq/L (3.5-5.1); Sodium 143 meq/L (136-145); Triglycerides 38 mg/dL (42-150)
[2018-04-09] MEDS: levETIRAcetam 250 MG Tablet PO SCH ×2 (02:12→13:54)
[2018-04-09] MEDS: Insulin NovoLOG Aspart Correctional Sugar Inj SQ SCH ×3 (03:17→13:52)
[2018-04-09] MEDS: Ketorolac Inj 30 MG/ML (IVP) Vial IV.PUSH SCH ×2 (04:58→11:08)
[2018-04-09 08:20] VITALS: RESP 18
[2018-04-09] MEDS: Sod Chloride 0.9% Inj 1,000 ML IV.CONT SCH (08:26)
--- NOTE | 2018-04-09 08:48 | ECG ---
Date Performed: 04/08/2018 Time Performed: 20:15:26 PTAGE: 47 years EKG: Sinus rhythm MINIMAL VOLTAGE CRITERIA FOR LVH, CONSIDER NORMAL VARIANT ST ABNORMALITY, CONSIDER EARLY REPOLARIZAT ION BORDERLINE ECG NO PREVIOUS TRACING DOCTOR: Wally Martinez Interpretating Date/Time 04/09/2018 08:47:22
--- NOTE | 2018-04-09 10:08 | P.PN ---
Subjective Interval history: Patient is seen sitting up in bed. Tells me that he does feel better today. Denies any further leg or calf pain. Reports chest pain is slightly better. No shortness of breath. No nausea vomiting diarrhea. No fever chills. Tolerating meals well. Physical Exam Vital signs: Vital Signs 04/08/18 12:28 04/08/18 16:00 04/08/18 16:03 Temperature 97.9 F Pulse Rate 70 64 73 Respiratory Rate 16 18 14 Blood Pressure 117/78 119/86 124/84 Pulse Oximetry 98 99 98 04/08/18 18:00 04/08/18 20:00 04/08/18 20:16 Temperature 98.2 F Pulse Rate 63 59 L Respiratory Rate 17 Blood Pressure 131/70 Pulse Oximetry 100 99 04/08/18 21:30 04/09/18 00:00 04/09/18 03:54 Temperature 97.6 F Pulse Rate 58 L 53 L Respiratory Rate 16 16 Blood Pressure 99/68 L Pulse Oximetry 100 04/09/18 04:00 04/09/18 08:00 Temperature 97.6 F 98.1 F Pulse Rate 61 62 Respiratory Rate 15 18 Blood Pressure 106/69 134/70 Pulse Oximetry 100 100 Intake & Output 04/08/18 04/09/18 04/09/18 18:59 06:59 18:59 Intake Total 120 / 120 1220 / 1220 Balance 120 / 120 1220 / 1220 Weight 76.204 kg 76.2 kg Intake: IV 0 / 0 1000 / 1000 NS Inj 1,000 ML @ 100 mls/hr IV 0 / 0 1000 / 1000 .CONT .Q10H [facility] Rx#:[id number] Oral 120 / 120 220 / 220 Narrative: GENERAL: Well-nourished, well-developed adult male in no obvious distress. SKIN: Warm and dry. HEAD: Atraumatic. Normocephalic. CARDIOVASCULAR: Regular rate and rhythm. Tenderness along left sternal border - improved. RESPIRATORY: No accessory muscle use. Clear to auscultation. Breath sounds equal bilaterally. GASTROINTESTINAL: Abdomen soft, non-tender, distended. Positive bowel sounds. MUSCULOSKELETAL: Extremities without clubbing, cyanosis, or edema. No obvious deformities. No tenderness in left calf. NEUROLOGICAL: Awake and alert. No obvious cranial nerve deficits. Motor grossly within normal limits. Normal speech. PSYCHIATRIC: Appropriate mood and affect; insight and judgment good. Results - Labs CBC & Chem 7: 04/09/18 01:27 04/09/18 01:27 Laboratory Results - last 24 hr 04/08/18 04/08/18 04/08/18 12:11 12:11 13:52 WBC RBC Hgb Hct MCV MCH MCHC RDW Plt Count MPV Neut % (Auto) Lymph % (Auto) [place] % (Auto) Eos % (Auto) Baso % (Auto) Neut # (Auto) Lymph # (Auto) [place] # (Auto) Eos # (Auto) Baso # (Auto) WBC Differential Differential Comment Sodium Potassium Chloride Carbon Dioxide Anion Gap BUN Creatinine Estimated GFR POC Glucose Random Glucose Hemoglobin A1c 6.0 Calcium Phosphorus Magnesium Total Bilirubin AST ALT Alkaline Phosphatase Total Creatine Kinase 356 H CK-MB (CK-2) 1.1 CK-MB (CK-2) % 0.3 Troponin I Less than 0.02 L Total Protein Albumin Triglycerides Cholesterol LDL Cholesterol, Calc HDL Cholesterol Cholesterol/HDL Ratio TSH 0.880 Free T4 04/08/18 04/08/18 04/08/18 13:52 17:24 19:30 WBC RBC Hgb Hct MCV MCH MCHC RDW Plt Count MPV Neut % (Auto) Lymph % (Auto) [place] % (Auto) Eos % (Auto) Baso % (Auto) Neut # (Auto) Lymph # (Auto) [place] # (Auto) Eos # (Auto) Baso # (Auto) WBC Differential Differential Comment Sodium Potassium Chloride Carbon Dioxide Anion Gap BUN Creatinine Estimated GFR POC Glucose 80 Random Glucose Hemoglobin A1c Calcium Phosphorus Magnesium Total Bilirubin AST ALT Alkaline Phosphatase Total Creatine Kinase 317 H CK-MB (CK-2) 0.9 CK-MB (CK-2) % 0.3 Troponin I Less than 0.02 L Total Protein Albumin Triglycerides Cholesterol LDL Cholesterol, Calc HDL Cholesterol Cholesterol/HDL Ratio TSH Free T4 1.01 04/08/18 04/09/18 04/09/18 21:26 01:27 01:27 WBC 4.0 RBC 4.12 L Hgb 11.8 L Hct 35.3 L MCV 85.7 MCH 28.7 MCHC 33.5 RDW 14.3 Plt Count 155 MPV 8.0 Neut % (Auto) 49.8 Lymph % (Auto) 38.9 [place] % (Auto) 9.7 H Eos % (Auto) 1.1 Baso % (Auto) 0.5 Neut # (Auto) 2.0 Lymph # (Auto) 1.6 [place] # (Auto) 0.4 Eos # (Auto) 0.0 Baso # (Auto) 0.0 WBC Differential . Differential Comment Auto diff final Sodium 143 Potassium 4.1 Chloride 109 H Carbon Dioxide 30.5 Anion Gap 4 L BUN 18 Creatinine 1.07 Estimated GFR Greater than 89 POC Glucose 111 H Random Glucose 91 Hemoglobin A1c Calcium 8.5 Phosphorus 4.0 Magnesium 2.1 Total Bilirubin 1.1 H AST 31 ALT 39 Alkaline Phosphatase 51 Total Creatine Kinase 306 CK-MB (CK-2) CK-MB (CK-2) % Troponin I Less than 0.02 L Total Protein 6.0 L D Albumin 3.4 D Triglycerides 38 L Cholesterol 137 LDL Cholesterol, Calc 63 HDL Cholesterol 66.9 H Cholesterol/HDL Ratio 2.04 TSH Free T4 04/09/18 04/09/18 02:10 08:21 WBC RBC Hgb Hct MCV MCH MCHC RDW Plt Count MPV Neut % (Auto) Lymph % (Auto) [place] % (Auto) Eos % (Auto) Baso % (Auto) Neut # (Auto) Lymph # (Auto) [place] # (Auto) Eos # (Auto) Baso # (Auto) WBC Differential Differential Comment Sodium Potassium Chloride Carbon Dioxide Anion Gap BUN Creatinine Estimated GFR POC Glucose 97 89 Random Glucose Hemoglobin A1c Calcium Phosphorus Magnesium Total Bilirubin AST ALT Alkaline Phosphatase Total Creatine Kinase CK-MB (CK-2) CK-MB (CK-2) % Troponin I Total Protein Albumin Triglycerides Cholesterol LDL Cholesterol, Calc HDL Cholesterol Cholesterol/HDL Ratio TSH Free T4 - Imaging Impressions Head CT 04/08/18 00:00 CONCLUSION: 1. Negative noncontrast CT. . Venous Doppler Study 04/08/18 00:00 CONCLUSION: 1. The study is negative for left lower extremity deep venous thrombosis. Chest CTA 04/08/18 09:39 CONCLUSION: 1. Biapical emphysematous changes. 2. No acute infiltrate or pulmonary embolus. Assessment and Plan - Plan Patient is a 47-year-old -[place] male presenting for chest pain and shortness of breath. History significant for seizures and prior left-sided paralysis/Tacho's paralysis. Chest pain -Likely costochondritis -Cardiology consulted. ECG normal. Troponins negative. SOB -CTA chest negative for PE. -Sats ok on room air Calf pain/lower left extremity swelling -Doppler negative for DVT -We will do head CT due to left-sided pain and history of seizure/paralysis - negative for acute process DVT prophylaxis: Ambulatory Discussed with: Patient, nurse Discharge planning: We will discharge today to home. Ibuprofen 800, Pepcid for costochondritis.
--- NOTE | 2018-04-09 10:19 | P.DS ---
Date of admission: 04/08/18 11:28 Primary care physician: Aiyana Calvillo Brief History from admission: Patient is a 47-year-old -[place] male who presented to the emergency room via EMS for evaluation of chest pain. He has a past medical history significant for seizures; his compliance with his Keppra is questionable. Patient tells me that his initial chest pain was stabbing in nature but it has now reduced to more of a spasm. He tells me that this is been going on for 4-5 weeks where he also experiences chest tightness, lightheadedness and shortness of breath during these episodes. The pain occurs both with activity and at rest. He also endorses occasional wheezing; denies any history of asthma. His other complaint is left calf and leg pain. Tells me that he gets frequent swelling in the left leg that he uses compression hose for. Review of medical records shows that patient was seen 03/2017 for left-sided paralysis. MRI EEG and carotids were generally negative. 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 DS: Diagnosis - Discharge Diagnosis (1) Acute costochondritis Status: Acute DS: Summary Hospital Course: Patient is a 47-year-old -[place]i male who presented to the emergency room via EMS for evaluation of chest pain. He has a past medical history significant for seizures; his compliance with his Keppra is questionable. Patient tells me that his initial chest pain was stabbing in nature but it has now reduced to more of a spasm. He tells me that this is been going on for 4-5 weeks where he also experiences chest tightness, lightheadedness and shortness of breath during these episodes. Patient was evaluated by cardiology with negative troponins and normal EKG. Also evaluated for PE with negative CTA and normal chest x-ray. No evidence of DVT in left leg as patient was complaining of intermittent swelling and pain there. Pain has improved with medication and IV hydration. - Time Spent with Patient Total time spent providing and/or coordinating discharge services: Less than 30 minutes - Quality: VTE Deep Vein Thrombosis/Pulmonary Embolism Present on Admission: No Exam Vital signs: Vital Signs 04/08/18 12:28 04/08/18 16:00 04/08/18 16:03 Temperature 97.9 F Pulse Rate 70 64 73 Respiratory Rate 16 18 14 Blood Pressure 117/78 119/86 124/84 Pulse Oximetry 98 99 98 08/14/18 18:00 04/08/18 20:00 04/08/18 20:16 Temperature 98.2 F Pulse Rate 63 59 L Respiratory Rate 17 Blood Pressure 131/70 Pulse Oximetry 100 99 04/08/18 21:30 04/09/18 00:00 04/09/18 03:54 Temperature 97.6 F Pulse Rate 58 L 53 L Respiratory Rate 16 16 Blood Pressure 99/68 L Pulse Oximetry 100 04/09/18 04:00 04/09/18 08:00 Temperature 97.6 F 98.1 F Pulse Rate 61 62 Respiratory Rate 15 18 Blood Pressure 106/69 134/70 Pulse Oximetry 100 100 Intake & Output 04/08/18 04/09/18 04/09/18 18:59 06:59 18:59 Intake Total 120 / 120 1220 / 1220 Balance 120 / 120 1220 / 1220 Weight 76.204 kg 76.2 kg Intake: IV 0 / 0 1000 / 1000 NS Inj 1,000 ML @ 100 mls/hr IV 0 / 0 1000 / 1000 .CONT .Q10H [facility] Rx#:[id number] Oral 120 / 120 220 / 220 Narrative: GENERAL: Well-nourished, well-developed adult male in no obvious distress. SKIN: Warm and dry. HEAD: Atraumatic. Normocephalic. CARDIOVASCULAR: Regular rate and rhythm. Tenderness along left sternal border - improved. RESPIRATORY: No accessory muscle use. Clear to auscultation. Breath sounds equal bilaterally. GASTROINTESTINAL: Abdomen soft, non-tender, distended. Positive bowel sounds. MUSCULOSKELETAL: Extremities without clubbing, cyanosis, or edema. No obvious deformities. No tenderness in left calf. NEUROLOGICAL: Awake and alert. No obvious cranial nerve deficits. Motor grossly within normal limits. Normal speech. PSYCHIATRIC: Appropriate mood and affect; insight and judgment good. Results Procedures completed during hospitalization: None Labs on day of discharge: Labs from last 24 hours 04/09/18 04/09/18 04/09/18 08:21 02:10 01:27 WBC RBC Hgb Hct MCV MCH MCHC RDW Plt Count MPV Neut % (Auto) Lymph % (Auto) Christian % (Auto) Eos % (Auto) Baso % (Auto) Neut # (Auto) Lymph # (Auto) Christian # (Auto) Eos # (Auto) Baso # (Auto) WBC Differential Differential Comment Sodium 143 Potassium 4.1 Chloride 109 H Carbon Dioxide 30.5 Anion Gap 4 L BUN 18 Creatinine 1.07 Estimated GFR Greater than 89 POC Glucose 89 97 Random Glucose 91 Hemoglobin A1c Calcium 8.5 Phosphorus 4.0 Magnesium 2.1 Total Bilirubin 1.1 H AST 31 ALT 39 Alkaline Phosphatase 51 Total Creatine Kinase 306 CK-MB (CK-2) CK-MB (CK-2) % Troponin I Less than 0.02 L Total Protein 6.0 L D Albumin 3.4 D Triglycerides 38 L Cholesterol 137 LDL Cholesterol, Calc 63 HDL Cholesterol 66.9 H Cholesterol/HDL Ratio 2.04 TSH Free T4 04/09/18 04/08/18 04/08/18 01:27 21:26 19:30 WBC 4.0 RBC 4.12 L Hgb 11.8 L Hct 35.3 L MCV 85.7 MCH 28.7 MCHC 33.5 RDW 14.3 Plt Count 155 MPV 8.0 Neut % (Auto) 49.8 Lymph % (Auto) 38.9 Christian % (Auto) 9.7 H Eos % (Auto) 1.1 Baso % (Auto) 0.5 Neut # (Auto) 2.0 Lymph # (Auto) 1.6 Christian # (Auto) 0.4 Eos # (Auto) 0.0 Baso # (Auto) 0.0 WBC Differential . Differential Comment Auto diff final Sodium Potassium Chloride Carbon Dioxide Anion Gap BUN Creatinine Estimated GFR POC Glucose 111 H Random Glucose Hemoglobin A1c Calcium Phosphorus Magnesium Total Bilirubin AST ALT Alkaline Phosphatase Total Creatine Kinase 317 H CK-MB (CK-2) 0.9 CK-MB (CK-2) % 0.3 Troponin I Less than 0.02 L Total Protein Albumin Triglycerides Cholesterol LDL Cholesterol, Calc HDL Cholesterol Cholesterol/HDL Ratio TSH Free T4 04/08/18 04/08/18 04/08/18 17:24 13:52 13:52 WBC RBC Hgb Hct MCV MCH MCHC RDW Plt Count MPV Neut % (Auto) Lymph % (Auto) Christian % (Auto) Eos % (Auto) Baso % (Auto) Neut # (Auto) Lymph # (Auto) Christian # (Auto) Eos # (Auto) Baso # (Auto) WBC Differential Differential Comment Sodium Potassium Chloride Carbon Dioxide Anion Gap BUN Creatinine Estimated GFR POC Glucose 80 Random Glucose Hemoglobin A1c 6.0 Calcium Phosphorus Magnesium Total Bilirubin AST ALT Alkaline Phosphatase Total Creatine Kinase CK-MB (CK-2) CK-MB (CK-2) % Troponin I Total Protein Albumin Triglycerides Cholesterol LDL Cholesterol, Calc HDL Cholesterol Cholesterol/HDL Ratio TSH Free T4 1.01 04/08/18 04/08/18 12:11 12:11 WBC RBC Hgb Hct MCV MCH MCHC RDW Plt Count MPV Neut % (Auto) Lymph % (Auto) Christian % (Auto) Eos % (Auto) Baso % (Auto) Neut # (Auto) Lymph # (Auto) Christian # (Auto) Eos # (Auto) Baso # (Auto) WBC Differential Differential Comment Sodium Potassium Chloride Carbon Dioxide Anion Gap BUN Creatinine Estimated GFR POC Glucose Random Glucose Hemoglobin A1c Calcium Phosphorus Magnesium Total Bilirubin AST ALT Alkaline Phosphatase Total Creatine Kinase 356 H CK-MB (CK-2) 1.1 CK-MB (CK-2) % 0.3 Troponin I Less than 0.02 L Total Protein Albumin Triglycerides Cholesterol LDL Cholesterol, Calc HDL Cholesterol Cholesterol/HDL Ratio TSH 0.880 Free T4 - Impressions ITS Impressions Head CT 04/08/18 00:00 CONCLUSION: 1. Negative noncontrast CT. . Venous Doppler Study 04/08/18 00:00 CONCLUSION: 1. The study is negative for left lower extremity deep venous thrombosis. Chest X-Ray 04/08/18 09:05 CONCLUSION: 1. No acute cardiopulmonary disease. Chest CTA 04/08/18 09:39 CONCLUSION: 1. Biapical emphysematous changes. 2. No acute infiltrate or pulmonary embolus. Discharge Plan - Discharge Disposition Patient Disposition: 01 Discharge Home - Discharge Condition Condition: Stable - Discharge Order Discharge Orders: Discharge Order (Routine); Ordered 04/09/18 Ordered By: Valentina Smith - Physicians Team Primary Care Provider: Aiyana Calvillo Attending Provider: Austen Navarro Other Providers: Wally Martinez MD
[2018-04-09] MEDS: Senna/Docusate Sodium 8.6/50 MG Tablet PO SCH (11:06)
[2018-04-09] MEDS ORDERED: Aspirin 325 MG Tablet PO SCH (11:59)
[2018-04-09 13:31] VITALS: BP 117/65; PULSE 68; TEMP 98.2; O2SAT 99
[2018-04-09] MEDS: Enoxaparin Inj 40 MG/0.4 ML Syringe SQ SCH (13:55)
[2018-04-09] MEDS ORDERED: Famotidine 20 MG Tablet PO SCH (21:00)
== END 2018-04-09 15:41 | disposition home or self-care (01) ==
LOC: NEPC 08:55 → NEDA 08:55 → NEPHCDU 08:55
PROVIDERS: ADMIT Hospitalist; ATTEND Hospitalist